=== PATIENT | male | born 1995 | race Caucasian/White ===

== ENCOUNTER 2018-03-08 22:53 | Emergency (ER) | payer OTHER, SELFPAY ==
[2018-03-08 22:53] VITALS: BP 144/113; PULSE 93; RESP 17; TEMP 37.3; O2SAT 97; BMI 35.4
--- NOTE | 2018-03-08 23:43 | ED.VISSUMM ---
- ER Visit Summary Date of Service: 03/08/18 Chief Complaint: Laceration right index finger History of Present Illness: The patient is a 22 M who presents with a laceration to his right index finger that occurred today. Patient states he was using a knife when it slipped and accidentally cut his right index finger. Patient states his last tetanus was less than 10 years ago. Patient denies any paresthesias or weakness. Patient states the bleeding stopped after a few minutes of pressure. Patient denies any other injuries. Physical Examination: Vital signs are stable. Patient is afebrile. Patient is in no acute distress. Skin is warm dry. There is a 0.5 cm partial-thickness avulsion laceration of the tip of the right index finger. There is no gapping of the wound margins. There is no active bleeding noted. Sensation was intact to light touch in all digits. Capillary refill is less than 2 seconds in all digits. There is full range of motion in flexion and extension of the DIP, PIP, and MP joints of the right index finger. The remaining physical exam is within normal limits. Emergency Department Course and Treatment: The wound was cleaned and a bacitracin and tube gauze dressing was applied. Patient was instructed to keep the wound clean and dry. Patient was instructed to follow-up with his primary care physician in 7-10 days. Patient understood and was agreeable with the plan. All questions were answered. Disposition: Discharged home Impression: Avulsion laceration right index fingertip This note was generated with [employer] dictation software. It may contain incorrect words, spelling, and punctuation that were not noted in review of the chart prior to signing ED Disposition - Plan for ED Patient: Disposition: Home or Assisted Living Chief Complaint: Laceration Diagnosis: Avulsion of finger tip Instructions: ED Laceration Small Superf No Sutr Referrals: NOT,DEFINED [Primary Care Provider] -
--- NOTE | 2018-03-08 23:46 | ED.DCSUM_ITS ---
- ER Visit Summary Date of Service: 03/08/18 Chief Complaint: Laceration right index finger History of Present Illness: The patient is a 22 M who presents with a laceration to his right index finger that occurred today. Patient states he was using a knife when it slipped and accidentally cut his right index finger. Patient states his last tetanus was less than 10 years ago. Patient denies any paresthesias or weakness. Patient states the bleeding stopped after a few minutes of pressure. Patient denies any other injuries. Physical Examination: Vital signs are stable. Patient is afebrile. Patient is in no acute distress. Skin is warm dry. There is a 0.5 cm partial-thickness avulsion laceration of the tip of the right index finger. There is no gapping of the wound margins. There is no active bleeding noted. Sensation was intact to light touch in all digits. Capillary refill is less than 2 seconds in all digits. There is full range of motion in flexion and extension of the DIP, PIP , and MP joints of the right index finger. The remaining physical exam is within normal limits. Emergency Department Course and Treatment: The wound was cleaned and a bacitracin and tube gauze dressing was applied. Patient was instructed to keep the wound clean and dry. Patient was instructed to follow-up with his primary care physician in 7-10 days. Patient understood and was agreeable with the plan. All questions were answered. Disposition: Discharged home Impression: Avulsion laceration right index fingertip This note was generated with [employer] dictation software. It may contain incorrect words, spelling, and punctuation that were not noted in review of the chart prior to signing ED Disposition - Plan for ED Patient: Disposition: Home or Assisted Living Chief Complaint: Laceration Diagnosis: Avulsion of finger tip Instructions: ED Laceration Small Superf No Sutr Referrals: NOT,DEFINED [Primary Care Provider] -
[2018-03-08] MEDS: BACITRACIN 15 GM Tube 1 APPLIC TOPICAL (23:57)
== END 2018-03-09 00:09 | disposition home or self-care (01) ==
PROVIDERS: Emergency Provider Emergency Medicine
DX: S61.210A Laceration without foreign body of right index finger without damage to nail, initial encounter (principal); W26.0XXA Contact with knife, initial encounter; Y93.9 Activity, unspecified; Y92.89 Other specified places as the place of occurrence of the external cause; Y99.9 Unspecified external cause status; Z23 Encounter for immunization
CPT/HCPCS: 99283